=== PATIENT | male | born 1940 ===

== ENCOUNTER 2021-02-19 10:00 | Inpatient (IN) | payer OTHER ==
[~2021-02-19] VITALS: Ht 172.7 cm; Wt 55.3 kg
[2021-02-19] MEDS ORDERED: NORVASC10 MG PO (15:54)
[2021-02-19] MEDS ORDERED: ZESTRIL40 M1 PO (15:54)
[2021-02-27] MEDS ORDERED: PERCOCET 5-3251 EACH PO (16:29)
== END 2021-02-27 17:26 | disposition home or self-care (01) | DRG 331 ==
LOC: O/R 02-23 06:00 → SURH 02-23 07:00
PROVIDERS: ADMIT Surgery; ATTEND Surgery
PROC: 07BC4ZX Excision of Pelvis Lymphatic, Percutaneous Endoscopic Approach, Diagnostic (ICD-10-PCS; 2021-02-23)
PROC: 0DTF4ZZ Resection of Right Large Intestine, Percutaneous Endoscopic Approach (ICD-10-PCS; principal; 2021-02-23 07:00)
DX: C18.2 Malignant neoplasm of ascending colon (principal); I11.9 Hypertensive heart disease without heart failure

== ENCOUNTER 2021-03-07 09:48 | Inpatient (IN) | payer OTHER ==
[~2021-03-07] VITALS: Ht 172.7 cm; Wt 55.3 kg
[~2021-03-07 09:48] MED LIST: NORVASC10 MG PO; PERCOCET 5-3251 EACH PO; ZESTRIL40 M1 PO
== END 2021-03-10 13:03 | disposition home or self-care (01) | DRG 683 ==
LOC: ER 09:48 → SEC-K 18:03 → SURG 03-09 09:44
PROVIDERS: ADMIT Surgery; ATTEND Surgery
PROC: BW211ZZ Computerized Tomography (CT Scan) of Abdomen and Pelvis using Low Osmolar Contrast (ICD-10-PCS; principal; 2021-03-08)
DX: N17.8 Other acute kidney failure (principal); C18.0 Malignant neoplasm of cecum; N32.0 Bladder-neck obstruction; E87.0 Hyperosmolality and hypernatremia; E86.0 Dehydration; R10.9 Unspecified abdominal pain; R33.9 Retention of urine, unspecified; R11.2 Nausea with vomiting, unspecified; R60.0 Localized edema; R53.1 Weakness; Z20.822 Contact with and (suspected) exposure to COVID-19; Z90.49 Acquired absence of other specified parts of digestive tract

== ENCOUNTER 2021-04-11 15:02 | Emergency (ER) | payer OTHER ==
[~2021-04-11] VITALS: Ht 172.7 cm; Wt 51.7 kg
[2021-04-11] MEDS ORDERED: PANADOL (15:41)
[2021-04-11] MEDS ORDERED: CIPRO500 MG PO (19:37)
== END 2021-04-11 20:19 | disposition home or self-care (01) ==
LOC: ER 15:02
DX: T83.098A Other mechanical complication of other urinary catheter, initial encounter (principal); N39.0 Urinary tract infection, site not specified; B96.29 Other Escherichia coli [E. coli] as the cause of diseases classified elsewhere

== ENCOUNTER 2021-05-11 13:00 | Emergency (ER) | payer OTHER ==
[~2021-05-11] VITALS: Ht 172.7 cm; Wt 51.7 kg
[~2021-05-11 13:00] MED LIST changes: +CIPRO500 MG PO; +PANADOL
[2021-05-11] MEDS ORDERED: FINASTERIDE5 MG PO (13:11)
[2021-05-11] MEDS ORDERED: RAPAFLO8 MG PO (13:12)
[2021-05-11] MEDS ORDERED: MUPIROCIN1 G1 TOP (16:54)
[2021-05-11] MEDS ORDERED: DUI500 PO (16:55)
[2021-05-11] MEDS ORDERED: DICLOFENAC POTA50 MG PO (16:55)
== END 2021-05-11 17:31 | disposition home or self-care (01) ==
LOC: ER 13:00
DX: N48.1 Balanitis (principal); N47.2 Paraphimosis